=== PATIENT | female | born 1935 | race Caucasian/White ===

== ENCOUNTER 2017-09-30 16:08 | Emergency (ER) | payer OTHER ==
[2017-09-30] MEDS ORDERED: DOPAMINE 400 MG/250ML D5W PREMIX IV ONE (16:09)
--- NOTE | 2017-09-30 17:21 | RAD REPORT ---
EXAM DESCRIPTION: RAD - Chest Single View - 09/30/2017 5:15 pm CLINICAL HISTORY: weakness Chest pain. COMPARISON: Chest Single View dated 12/10/2015; CHEST PA AND LAT 2 VIEW dated 03/23/2015; CHEST SINGL E VIEW dated 01/25/2012; CHEST SINGLE VIEW dated 01/24/2012 FINDINGS: Portable technique limits examination quality. The lungs are emphysematous but grossly clear. The heart is normal in size. No displaced fractures.Mi ld thoracic dextroscoliosis. IMPRESSION: No acute intrathoracic process suspected. Prominent COPD.
--- NOTE | 2017-09-30 17:22 | RAD REPORT ---
EXAM DESCRIPTION: RAD - Lumbar Spine 3 Views - 09/30/2017 5:17 pm CLINICAL HISTORY: Pain;Lower back pain Radiculopathy COMPARISON: None FINDINGS: Diffuse osteopenia is seen. Advanced degenerative levoscoliosis of the lumbar spine is see n with multilevel retrolisthesis present. Mild anterolisthesis is seen L5-S1. Heavy aortic atheroscle rosis. No acute fracture seen.
[2017-09-30 17:52] LABS: Absolute Lymphocytes (CBC) 0.6 K/uL (0.7-4.9); Absolute Monocytes 0.8 K/uL (0.1-1.3); Absolute Neutrophil 8.3 K/uL (1.8-8.0); Basophils % 0.4 % (0-1.3); Eosinophils % 0.5 % (0-4.4); Hematocrit 39.9 % (36.0-45.0); Lymphocytes % 5.9 % (15.3-44.8); MCH 30.9 pg (27.0-35.0); MCV 89.1 fL (80-100); MPV 9.5 fL (7.6-11.3); Monocytes % 8.4 % (3.3-12.3); RBC Red Blood Cell Count 4.48 M/uL (3.86-4.86)
[2017-09-30 18:00] LABS: Protime INR 1.03
[2017-09-30 18:28] LABS: Bilirubin Direct 0.2 mg/dL (0-0.2); Bilirubin Total 0.7 mg/dL (0.2-1.0); Magnesium 2.5 mg/dL (1.8-2.4); Potassium 4.1 mmol/L (3.5-5.1); Protein, Total 7.1 g/dL (6.4-8.2)
[2017-09-30] MEDS ORDERED: NA CHLORIDE 0.9% 500 ML ONE (19:05)
[2017-09-30] MEDS ORDERED: ATROPINE SULF 1 MG/10 ML SYR IV ONE (19:37)
--- NOTE | 2017-09-30 20:30 | RAD REPORT ---
EXAM DESCRIPTION: CT - Head Brain Wo Cont - 09/30/2017 8:19 pm CLINICAL HISTORY: AMS COMPARISON: Chest Single View dated 09/30/2017 TECHNIQUE: All CT scans are performed using dose optimization technique as appropriate and may inclu de automated exposure control or mA/KV adjustment according to patient size. FINDINGS: A soft tissue mass lesion is identified with destructive changes involving the left fronta l calvarium. The mass lesion measures approximately 4.0 x 1.8 cm with mass effect on the left frontal lobe. White matter edema is seen in the frontal lobe in this region.The mottled/lucent destructive a ppearance of the calvarium extends to the right frontal bone medially as well as inferiorly into the left zygoma.No intracranial hemorrhage is identified. No hydrocephalus or midline shift. The paranasal sinuses and mastoids are clear. 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 Lytic/mottled appearance is also noted involving right frontal calvarium and extending inferiorl y into the region of the left zygoma. Primary differential considerations include metastatic disease and multiple myeloma.
--- NOTE | 2017-09-30 21:34 | ER ---
Nurse's Notes [facility] Name: Liz Sifuentes Age: 81 yrs Sex: Female : 1935 Arrival Date: 09/30/2017 Time: 16:13 Bed 4 Private MD: Diagnosis: Brain Mass;Bradycardia;Seizure Presentation: 09/30 16:13 Presenting complaint: EMS states: called out for generalized weakness for several em weeks, reports falling multiple times, no obvious injuries noted, denies hitting head, not on blood thinners, denies pain currently, also c/o low back pain for 6 weeks, but may have been from an injury from the 1969's, VSS. Transition of care: patient was not received from another setting of care. Onset of symptoms was July 21, 2017. Risk Assessment: Do you want to hurt yourself or someone else? Patient reports no desire to harm self or others. Initial Sepsis Screen: Does the patient meet any 2 criteria? No. Patient's initial sepsis screen is negative. Does the patient have a suspected source of infection? No. Patient's initial sepsis screen is negative. Care prior to arrival: None. 16:13 Method Of Arrival: EMS: [facility] em 19:01 Acuity: ZARIA 3 jd3 Triage Assessment: 16:18 General: Appears in no apparent distress. comfortable, Behavior is calm, cooperative. em Pain: Denies pain. Historical: - Allergies: 16:17 Aspirin; em - Home Meds: 16:17 None [Active]; em - PMHx: 16:17 COPD; em - PSHx: 16:17 None; em - Immunization history:: Adult Immunizations up to date. - Social history:: Smoking status: Patient/guardian denies using tobacco. - Ebola Screening: : Patient negative for fever greater than or equal to 101.5 degrees Fahrenheit, and additional compatible Ebola Virus Disease symptoms Patient denies exposure to infectious person Patient denies travel to an Ebola-affected area in the 21 days before illness onset No symptoms or risks identified at this time. Screenin:19 Abuse screen: Denies threats or abuse. Nutritional screening: No deficits noted. em Tuberculosis screening: No symptoms or risk factors identified. Fall Risk None identified. Assessment: 16:18 General: Appears in no apparent distress. comfortable, Behavior is calm, cooperative. em Pain: Denies pain. Neuro: Level of Consciousness is awake, alert, obeys commands, Oriented to person, place, time, situation, Moves all extremities. Cardiovascular: Denies chest pain, palpitations, shortness of breath, Capillary refill < 3 seconds Patient's skin is warm and dry. Respiratory: Airway is patent Respiratory effort is even, unlabored, Respiratory pattern is regular, symmetrical. GI: Abdomen is round non-distended, Patient currently denies nausea, vomiting. : Denies burning with urination, pain. EENT: No signs and/or symptoms were reported regarding the EENT system. Derm: Skin is intact, Skin is pink, warm \T\ dry. Musculoskeletal: Range of motion: intact in all extremities. 16:25 Reassessment: Patient appears in no apparent distress at this time. I agree with above iw assessment by Chidi Salas LVN. 17:17 Reassessment: pt currently in CT. em 19:01 Reassessment: Patient appears in no apparent distress at this time. No changes from jd3 previously documented assessment. Patient and/or family updated on plan of care and expected duration. Pain level reassessed. Patient is alert, oriented x 3, equal unlabored respirations, skin warm/dry/pink. 19:01 General: Appears in no apparent distress. comfortable, Behavior is calm, cooperative, jd3 appropriate for age. Pain: Denies pain. Neuro: Level of Consciousness is awake, alert, obeys commands, Oriented to person, place, time, situation, Moves all extremities. Speech is normal, Pupils are PERRLA, Reports weakness general. Cardiovascular: Denies chest pain, shortness of breath, Capillary refill < 3 seconds Patient's skin is warm and dry. Respiratory: Airway is patent Respiratory effort is even, unlabored, Respiratory pattern is regular, symmetrical. GI: Abdomen is round non-distended, Patient currently denies nausea, vomiting. : Denies burning with urination. EENT: No signs and/or symptoms were reported regarding the EENT system. Derm: Skin is intact, Skin is dry, Skin is normal, Skin temperature is warm. Musculoskeletal: Range of motion: intact in all extremities. 19:30 Reassessment: pt's family member came out of the stating pt was not breathing. upon jd3 entering the room pt was found unresponsive with seizure-like activity. awake overnight monitor showed a heart rate in the 20's-30's. providers at bedside. 19:31 Reassessment: pt moved to trauma room 4. in transit pt A\T\O X2 to self and place, pt jd3 reporting feeling week. upon arriving in room pt connected to defibrillator and transcutaneous pacing started by Dr. Olvera. pt continued to with A\T\O X2. report given to Elizabeth RUIZ. 20:00 Reassessment: Pt taken to CT per stretcher accompanied by nurse ,tech and technology risk intern. ea 20:20 Reassessment: Pt returned from CT. HR continues at 71. Pt alert and oriented to self ea and place. Denies pain. Respirations even and unlabored. Chest expansions even and symmetrical. 20:30 Reassessment: Pt HR increased to 150 physician notified. Pt alert and oriented to self ea and place. Respirations even and unlabored. Chest expansions even and symmetrical. 20:32 Reassessment: Physician at bedside order to decrease dopamine to 5 mcg , physician ea discontinued external pacing. Monitor showing sinus tach. 20:44 Reassessment: Pt alert and oriented to self and place. Pt HR decreased to 119 physician ea at bedside updating family of plan of care. 20:59 Reassessment: Physician at bedside updating family on plan of care. ea 21:06 Reassessment: Patient and/or family updated on plan of care and expected duration. Pain ea level reassessed. Patient is alert, oriented x 3, equal unlabored respirations, skin warm/dry/pink. Monitor showing pt at sinus rhythm. HR within normal limits. 21:26 Reassessment: Patient and/or family updated on plan of care and expected duration. Pain ea level reassessed. Patient is alert, oriented x 3, equal unlabored respirations, skin warm/dry/pink. Patient states symptoms have improved. 21:40 Reassessment: report called to Nasreen RUIZ at [facility]. ea 22:18 Reassessment: Patient and/or family updated on plan of care and expected duration. Pain ea level reassessed. Patient is alert, oriented x 3, equal unlabored respirations, skin warm/dry/pink. Pt left with life flight crew. Vital Signs: 16:18 BP 120 / 45; Pulse 53; Resp 16; Temp 97.8(O); Pulse Ox 96% on R/A; Weight 58.97 kg (R); em Height 5 ft. 4 in. (162.56 cm); Pain 0/10; 16:45 BP 119 / 57; Pulse 69; Resp 18; Pulse Ox 98% on R/A; em 18:41 BP 108 / 48; Pulse 71; Resp 17; Pulse Ox 95% on R/A; em 19:00 BP 108 / 55; Pulse 65; Resp 20 S; Pulse Ox 96% on R/A; em 20:51 BP 110 / 39; Pulse 99; Resp 18; Pulse Ox 95% ; ea 21:06 BP 113 / 42; Pulse 89; Resp 18; Pulse Ox 95% on R/A; ea 21:51 BP 119 / 48; Pulse 78; Resp 18; Temp 98.2(O); Pulse Ox 96% on R/A; ea 16:18 Body Mass Index 22.31 (58.97 kg, 162.56 cm) em ED Course: 16:13 Patient arrived in ED. em 16:15 De Jama PA is PHCP. jm 16:15 Shon Diez MD is Attending Physician. jm 16:18 Arm band placed on. em 16:19 Patient has correct armband on for positive identification. Bed in low position. Call em light in reach. Adult w/ patient. 16:19 No provider procedures requiring assistance completed. em 16:55 Patient moved to radiology via stretcher. la2 16:59 Chidi Salas LVN is Primary Nurse. em 17:14 X-ray completed. Portable x-ray completed in exam room. Patient tolerated procedure la2 well. Patient moved back from radiology. 17:15 XRAY Chest (1 view) In Process Unspecified. EDMS 17:15 Lumbar Spine (3 Views) XRAY In Process Unspecified. EDMS 17:35 Initial lab(s) drawn, by me, sent to lab. EKG done, by ED staff, reviewed by De [facility] Evita WILL. Inserted saline lock: 22 gauge in left antecubital area, using aseptic technique. Blood collected. 19:02 Triage completed. jd3 19:29 Primary Nurse role handed off by Chidi Salas LVN ea 19:50 Attending Physician role handed off by Shon Diez MD [facility] 19:50 Ruddy Olvera MD is Attending Physician. jmm 19:51 Inserted saline lock: 20 gauge in right antecubital area, using aseptic technique. ea 20:19 CT Head Brain wo Cont In Process Unspecified. EDMS 20:23 Elizabeth Richardson, JOSEPH is Primary Nurse. ea 21:50 Patient transferred, IV remains in place. ea Administered Medications: 19:04 Drug: NS 0.9% 500 ml Route: IV; Rate: 150 ml/hr; Site: left antecubital; jd3 19:28 Drug: Atropine 0.5 mg Route: IVP; Site: left antecubital; ea 20:00 Follow up: Response: No adverse reaction ea 19:30 Drug: Atropine 0.5 mg Route: IVP; Site: left antecubital; ea 20:00 Follow up: Response: No adverse reaction ea 19:45 Drug: Dopamine drip 10 mcg/kg/min - (DOPamine 400 mg, D5W 250 ml) Route: IV; Rate: ea calculated rate; Site: left antecubital; 19:49 Follow up: Rate change 20 mcg/kg/min ea 20:30 Follow up: Rate change 5 mcg/kg/min ea Outcome: 21:33 ER care complete, transfer ordered by MD. m 22:00 Instructed on the need for transfer. ea 22:15 Transferred by helicopter to [facility], Transfer form completed. ea X-rays sent w/ patient. 22:15 Condition: stable 22:16 Patient left the ED. ea Signatures: Dispatcher [employer] EDMS De Jama PA PA Chidi De Santiago, WEAVER NEEDLE LOOM WEAVER NEEDLE LOOM em Zulma Dixon RN RN iw Herrera, Deanna 3 Elizabeth Richardson RN RN ea Ardoin, [facility] Luis A Snowden RN RN jd3 Corrections: (The following items were deleted from the chart) 19:01 19:00 Reassessment: Patient appears in no apparent distress at this time. No changes em from previously documented assessment. Patient and/or family updated on plan of care and expected duration. Pain level reassessed. Patient is alert, oriented x 3, equal unlabored respirations, skin warm/dry/pink. em 20:15 19:01 Reassessment: Patient appears in no apparent distress at this time. No changes jd3 from previously documented assessment. Patient and/or family updated on plan of care and expected duration. Pain level reassessed. Patient is alert, oriented x 3, equal unlabored respirations, skin warm/dry/pink. jd3 20:59 20:44 Reassessment: Pt alert and oriented to self and place. Pt HR decreased to 119 ea physician at bedside. ea 21:03 20:20 Reassessment: Pt returned from CT. HR continues at 71. Pt alert and oriented to ea self and place. Denies pain. ea 21:03 20:30 Reassessment: Pt HR increased to 150 physician notified. ea ea 22:31 20:32 Reassessment: Physician at bedside order to decrease dopamine to 5 mcg , ea physician discontinued external pacing. ea 22:41 21:51 BP 119 / 48; Pulse 78bpm; Resp 18bpm; Pulse Ox 96% RA; ea ea
--- NOTE | 2017-09-30 21:34 | EDPHYS ---
Physician Documentation [facility] Name: Liz Sifuentes Age: 81 yrs Sex: Female : 1935 Arrival Date: 09/30/2017 Time: 16:13 Bed 4 Private MD: ED Physician Ruddy Olvera HPI: 09/30 16:16 This 81 yrs old Female presents to ER via EMS with complaints of General jmm Weakness. 16:16 Details of fall: The patient fell from an upright position, from seated position. jmm Onset: The symptoms/episode began/occurred gradually, 3 week(s) ago. Associated injuries: The patient sustained no obvious injury. This is an 81 year old female that presents to the ED with multiple episodes of falls along with complaints of worsening weakness. patient denies hitting her head. Patient states that she most recently fell while attempting to get off her toilet today. Patient complains of weakness mainly to her legs along with lower back pain. Patient denies urinary retention or fecal incontinence. Friend of the patient states she is concerned the patient lives at home. Patient denies chest pain, shortness of breath.. Historical: - Allergies: 16:17 Aspirin; em - Home Meds: 16:17 None [Active]; em - PMHx: 16:17 COPD; em - PSHx: 16:17 None; em - Immunization history:: Adult Immunizations up to date. - Social history:: Smoking status: Patient/guardian denies using tobacco. - Ebola Screening: : Patient negative for fever greater than or equal to 101.5 degrees Fahrenheit, and additional compatible Ebola Virus Disease symptoms Patient denies exposure to infectious person Patient denies travel to an Ebola-affected area in the 21 days before illness onset No symptoms or risks identified at this time. ROS: 16:20 Cardiovascular: Negative for chest pain, palpitations, and edema, Respiratory: Negative jmm for shortness of breath, cough, wheezing, and pleuritic chest pain, Abdomen/GI: Negative for abdominal pain, nausea, vomiting, diarrhea, and constipation. 16:20 Constitutional: Positive for fatigue. 16:20 Back: Positive for pain at rest, pain with movement. 16:20 MS/extremity: Positive for 16:20 Neuro: Positive for weakness. 16:20 All other systems are negative. Exam: 16:20 Constitutional: This is a well developed, well nourished patient who is awake, alert, jmm and in no acute distress. Head/Face: atraumatic. Chest/axilla: Normal chest wall appearance and motion. 16:20 Cardiovascular: Rate: normal, Rhythm: regular, Pulses: no pulse deficits are appreciated. 16:20 Respiratory: the patient does not display signs of respiratory distress, Respirations: normal, Breath sounds: are clear throughout. 16:20 Musculoskeletal/extremity: ROM: intact in all extremities, Pulses: are normal with no appreciated deficits, Sensation intact. 16:20 Skin: purpura noted to the thighs. 16:20 Neuro: Orientation: is normal, Mentation: is normal, Memory: is normal. 16:20 Psych: Behavior/mood is pleasant, cooperative. Vital Signs: 16:18 BP 120 / 45; Pulse 53; Resp 16; Temp 97.8(O); Pulse Ox 96% on R/A; Weight 58.97 kg (R); em Height 5 ft. 4 in. (162.56 cm); Pain 0/10; 16:45 BP 119 / 57; Pulse 69; Resp 18; Pulse Ox 98% on R/A; em 18:41 BP 108 / 48; Pulse 71; Resp 17; Pulse Ox 95% on R/A; em 19:00 BP 108 / 55; Pulse 65; Resp 20 S; Pulse Ox 96% on R/A; em 20:51 BP 110 / 39; Pulse 99; Resp 18; Pulse Ox 95% ; ea 21:06 BP 113 / 42; Pulse 89; Resp 18; Pulse Ox 95% on R/A; ea 21:51 BP 119 / 48; Pulse 78; Resp 18; Temp 98.2(O); Pulse Ox 96% on R/A; ea 16:18 Body Mass Index 22.31 (58.97 kg, 162.56 cm) em MDM: 16:16 Patient medically screened. shelley 19:50 ED course: Upon shift change, patient had episode of unresponsiveness, ecg showed rn bradycardia with unconducted p waves, irregular spacing, high degree 2nd degree av block or atypical 3rd degree, hooked up to cutaneous pacing and started dopamine after minimal response to atropine.. 21:14 Data reviewed: vital signs, nurses notes, lab test result(s), EKG, radiologic studies, jmm CT scan, plain films. Counseling: I had a detailed discussion with the patient and/or guardian regarding: the historical points, exam findings, and any diagnostic results supporting the discharge/admit diagnosis, the need to transfer to another facility. ED course: Dr. Olvera discussed the patient with Dr. Ferguson whom accepted transfer. 09/30 16:47 Order name: Basic Metabolic Panel [facility] 09/30 16:47 Order name: CBC with Diff; Complete Time: 18:25 [facility] 09/30 16:47 Order name: Ckmb [facility] 09/30 16:47 Order name: CPK [facility] 09/30 16:47 Order name: LFT's [facility] 09/30 16:47 Order name: Magnesium; Complete Time: 18:43 [facility] 09/30 16:47 Order name: NT PRO-BNP; Complete Time: 18:43 [facility] 09/30 16:47 Order name: PT-INR; Complete Time: 18:25 [facility] 09/30 16:47 Order name: Ptt, Activated; Complete Time: 18:25 [facility] 09/30 16:47 Order name: Troponin (emerg Dept Use Only); Complete Time: 18:25 [facility] 09/30 16:48 Order name: Basic Metabolic Panel; Complete Time: 18:43 [facility] 09/30 16:48 Order name: CKMB Creatine Kinase MB; Complete Time: 18:43 [facility] 09/30 16:48 Order name: Creatine Phosphokinase; Complete Time: 18:43 [facility] 09/30 16:48 Order name: Liver (Hepatic) Function; Complete Time: 18:43 [facility] 09/30 16:47 Order name: XRAY Chest (1 view); Complete Time: 17:23 [facility] 09/30 16:47 Order name: EKG; Complete Time: 16:48 [facility] 09/30 16:47 Order name: Cardiac monitoring; Complete Time: 18:41 [facility] 09/30 16:47 Order name: EKG - Nurse/Tech; Complete Time: 17:46 [facility] 09/30 16:47 Order name: IV Saline Lock; Complete Time: 17:46 [facility] 09/30 16:47 Order name: Labs collected and sent; Complete Time: 17:46 [facility] 09/30 16:47 Order name: O2 Per Protocol; Complete Time: 18:41 [facility] 09/30 16:47 Order name: O2 Sat Monitoring; Complete Time: 18:41 [facility] 09/30 16:47 Order name: Lumbar Spine (3 Views) XRAY; Complete Time: 17:23 [facility] 09/30 19:28 Order name: CT Head Brain wo Cont; Complete Time: 20:43 [facility] 09/30 20:49 Order name: EKG - Nurse/Tech; Complete Time: 21:06 cc Administered Medications: 19:04 Drug: NS 0.9% 500 ml Route: IV; Rate: 150 ml/hr; Site: left antecubital; jd3 19:28 Drug: Atropine 0.5 mg Route: IVP; Site: left antecubital; ea 20:00 Follow up: Response: No adverse reaction ea 19:30 Drug: Atropine 0.5 mg Route: IVP; Site: left antecubital; ea 20:00 Follow up: Response: No adverse reaction ea 19:45 Drug: Dopamine drip 10 mcg/kg/min - (DOPamine 400 mg, D5W 250 ml) Route: IV; Rate: ea calculated rate; Site: left antecubital; 19:49 Follow up: Rate change 20 mcg/kg/min ea 20:30 Follow up: Rate change 5 mcg/kg/min ea Disposition: 10/01 03:00 Co-signature as Attending Physician, Ruddy Olvera MD. rn Disposition: 09/30/17 21:33 Transfer ordered to [facility]. Diagnosis are Brain Mass, Bradycardia, Seizure. - Reason for transfer: Higher level of care. - Accepting physician is Phyllis. - Condition is Stable. - Problem is new. - Symptoms have improved. Signatures: Dispatcher [employer] Shon Salmeron MD MD cha Mickail, Joel, PA PA Chidi Akbar, OPTICAL SCIENTIST OPTICAL SCIENTIST Ruddy Rucker MD MD rn Christian, Chelsea cc Antunez, Elena, RN RN ea Davies, Jonathon, RN RN jd3 Corrections: (The following items were deleted from the chart) 09/30 22:16 21:33 09/30/2017 21:33 Transfer ordered to [facility]. Diagnosis is ea Brain Mass; Bradycardia; Seizure. Reason for transfer: Higher level of care. Accepting physician is Phyllis. Condition is Stable. Problem is new. Symptoms have improved. jmm
[2017-09-30 22:34] VITALS: TEMP 97.8
[2017-09-30 22:40] VITALS: BP 119/48; O2SAT 96
--- NOTE | 2017-10-01 10:34 | EKG ---
Test Date: 2017-09-30 Test Time: 20:52:27 Lead Software Development Engineer: ANKIT MEASUREMENT RESULTS: Intervals: Rate: 97 RI: 158 QRSD: 80 QT: 330 QTc: 419 [place]: P: 34 RI: 158 QRS: 95 T: -58 INTERPRETIVE STATEMENTS: Normal sinus rhythm ST & T wave abnormality, consider inferior ischemia ST & T wave abnormality, consider anterolateral ischemia Abnormal ECG Compared to ECG 09/30/2017 19:28:52 ST (T wave) deviation now present Possible ischemia now present complete heart block is no longer present Electronically Signed On 10-01-17 10:33:38 CDT by Yg Merrill
--- NOTE | 2017-10-01 10:37 | EKG ---
Test Date: 2017-09-30 Test Time: 17:38:11 Water Reclamation Systems Operator: TURNER MEASUREMENT RESULTS: Intervals: Rate: 69 AK: 148 QRSD: 108 QT: 432 QTc: 462 [place]: P: 61 AK: 148 QRS: 89 T: 3 INTERPRETIVE STATEMENTS: Sinus rhythm with premature atrial complexes Nonspecific ST and T wave abnormality Abnormal ECG Compared to ECG 12/10/2015 10:50:06 Atrial premature complex(es) now present ST (T wave) deviation now present Sinus tachycardia no longer present Ventricular premature complex(es) no longer present Electronically Signed On 10-01-17 10:37:02 CDT by Yg Merrill
--- NOTE | 2017-10-01 10:37 | EKG ---
Test Date: 2017-09-30 Test Time: 19:28:52 Brush Holder Inspector: RICKY MEASUREMENT RESULTS: Intervals: Rate: 72 [place]: QRSD: 94 QT: 202 QTc: 221 [place]: P: [place]: QRS: 62 T: 243 INTERPRETIVE STATEMENTS: Sinus rhythm with complete heart block, ventricular escape rhythm Low voltage QRS Possible Anterolateral infarct, age undetermined Abnormal ECG Compared to ECG 09/30/2017 17:38:11 complete heart block with ventricular escape rhythm is now present Low QRS voltage now present Electronically Signed On 10-01-17 10:36:35 CDT by Yg Merrill
== END 2017-09-30 22:16 | disposition short-term general hospital (02) ==
LOC: ER 16:08
DX: R22.0 Localized swelling, mass and lump, head (principal); R00.1 Bradycardia, unspecified; R56.9 Unspecified convulsions; J44.9 Chronic obstructive pulmonary disease, unspecified; Z88.6 Allergy status to analgesic agent
CPT/HCPCS: 36415; 70450; 71045; 72100; 80048; 80076; 82550; 82553; 83735; 83880; 84484; 85025; 85610; 85730; 93005 ×3; 96374; 96375; 99285; J1265